=== PATIENT | male | born 1935 | race Caucasian/White ===

== ENCOUNTER 2019-05-23 22:48 | Emergency (ER) | payer OTHER ==
[~2019-05-23] VITALS: Ht 167.6 cm; Wt 67.6 kg
[2019-05-23 22:50] VITALS: BP_SYST 156
--- NOTE | 2019-05-23 22:50 | NUR ---
Pt placed to ER bed 04, to chaitanya, report given to AMOS Levine.
--- NOTE | 2019-05-23 22:51 | NUR ---
Pt AAOx2 referred to ED from urgent care c/o 11/25 non-radiating mid chest pain with vomiting x 2 hours. Was given GI cocktail in UC with mild relief. Pt speaking in full sentences, skin pink dry and warm. No other injuries/complaints per pt/noted. Will continue to monitor.
[2019-05-23] MEDS ORDERED: ASPIRIN 81 MG TAB.CHEW PO ONE (23:00)
--- NOTE | 2019-05-23 23:00 | NUR ---
Dr. hZou at bedside.
--- NOTE | 2019-05-23 23:03 | NUR ---
ER Dr. Zhou at bedside examining patient.
--- NOTE | 2019-05-23 23:06 | NUR ---
Radiology at bedside for CXR
[2019-05-23] MEDS ORDERED: ACETAMINOPHEN 500 MG TABLET PO ONE (23:30)
[2019-05-23 23:31] LABS: HEMATOCRIT 42.8 % (36-54); HEMOGLOBIN 14.3 g/dL (14.0-18.0); MEAN CORPUSCULAR HEMOGLOBIN 31 pg (27-31); MEAN CORPUSCULAR HGB CONC 33 % (32-36); MEAN CORPUSCULAR VOLUME 91 fL (79.0-98.0); PLATELET COUNT (AUTO) 180 K/uL (130-430); RED CELL DISTRIBUTION WIDTH 13.6 % (9.0-15.0); WHITE BLOOD COUNT (AUTO) 24.6 K/uL (4.8-10.8)
[2019-05-23 23:50] LABS: ANION GAP 8 (5-15); CALCIUM 10.3 mg/dL (8.4-11.0); CHLORIDE 96 mmol/L (98-107); CREATININE 1.08 mg/dL (0.55-1.30); GLUCOSE 275 mg/dL (70-99); POTASSIUM 3.9 mmol/L (3.5-5.1); SODIUM SERUM 135 mmol/L (136-145); UREA NITROGEN, BLOOD 22 mg/dL (8-21)
[2019-05-23 23:58] LABS: ALANINE AMINOTRANSFERASE 27 U/L (12-78); ALBUMIN 4.1 g/dL (3.4-4.8); ASPARTATE AMINOTRANSFERASE 19 U/L (10-37); LIPASE 140 U/L (73-393); TOTAL BILIRUBIN 0.4 mg/dL (0.0-1.0)
[2019-05-23 23:59] LABS: BAND % (MANUAL) 4 % (0-6); LYMPHOCYTES % (MANUAL) 45 % (20-46)
[2019-05-24] LABS: ATYPICAL LYMPHOCYTES % 1 % (0-0); EOSINOPHILS % (MANUAL) 1 % (0-7); MONOCYTES % (MANUAL) 1 % (0-11)
--- NOTE | 2019-05-24 | NUR ---
rectal temperature taken Pr Request. Temp 98.5, made aware
[2019-05-24 00:13] LABS: BASOPHILS % (MANUAL) 0 % (0-2)
--- NOTE | 2019-05-24 00:30 | NUR ---
Pt resting in ED bed, no acute distress noted. Pt denies chest pain at this time.
[2019-05-24 00:36] LABS: FREE T4 (FREE THYROXINE) 1.1 ng/dl (0.8-1.5); THYROID STIMULATING HORMONE 1.44 uIu/mL (0.36-3.74)
[2019-05-24] MEDS ORDERED: NACL 0.9% 1,000 ML IV ONE ×2 (01:15→04:30)
[2019-05-24] MEDS ORDERED: PIPERACILLIN/TAZO 3.375 GM in NS 50 ML IV ONE (01:15)
[2019-05-24] MEDS ORDERED: VANCOMYCIN HCL 1,000 MG in NS 250 ML IV ONE (01:15)
--- NOTE | 2019-05-24 01:34 | NUR ---
Unable to save Med Rec into [facility]. Pt states that he takes the following medications: Metformin 1000 mg PO BID. Lisinopril/Hctz 10-12.5 mg PO Daily. Insulin SQ (Formulation, dosage, frequency unknown).
[2019-05-24 02:18] LABS: BILIRUBIN,URINE NEGATIVE (NEGATIVE); BLOOD, URINE NEGATIVE (NEGATIVE); CLARITY/URINE CLEAR (CLEAR); COLOR,URINE YELLOW (YELLOW); GLUCOSE,URINE 3+ (NEGATIVE); KETONES,URINE 1+ (NEGATIVE); LEUKOCYTE ESTERASE ,URINE NEGATIVE (NEGATIVE); NITRITE, URINE NEGATIVE (NEGATIVE); PH,URINE 6.5 (5.0-8.0); PROTEIN URINE 1+ (NEGATIVE); UROBILINOGEN,URINE 0.2 (0.2-1.0)
--- NOTE | 2019-05-24 02:19 | NUR ---
Pt tolerating IV fluids and IV antibiotics well. No s/s of adverse reactions. Pt resting comfortably in ED bed
[2019-05-24 02:36] LABS: BACTERIA,URINE RARE /HPF (None Seen); RBC,URINE 0-3 /HPF (0-3); WBC,URINE 0-3 /HPF (0-3)
--- NOTE | 2019-05-24 03:58 | NUR ---
Pt resting in ED bed with family member bedside. Pt tolerating antibiotics and fluids well. No s/s of acute distress at this time. VSS
--- NOTE | 2019-05-24 05:00 | NUR ---
Pt ambulated to restroom with assistance. pt states he feels improved compared to presentation time.
[2019-05-24] MEDS ORDERED: METOPROLOL TARTRATE 5 MG/5 ML VIAL IVP ONE (05:15)
--- NOTE | 2019-05-24 05:22 | NUR ---
Pt resting in ED bed comfortably. No S/S of acute distress noted. VSS
--- NOTE | 2019-05-24 06:26 | NUR ---
Patient will be admitted to care of . Admitted to Tele unit. Room assignment pending. Pt states he will be sending belonging home. Complete and up to date summary report printed. SBAR report to be given at bedside with opportunity for questions.
--- NOTE | 2019-05-24 07:29 | NUR ---
Report Given to AMOS Tuttle. All care endorsed.
--- NOTE | 2019-05-24 07:45 | NUR ---
Received pt alert and oriented and stable.
[2019-05-24] MEDS ORDERED: ASPIRIN 325 MG TABLET PO SCH (09:00)
--- NOTE | 2019-05-24 09:01 | NUR ---
Pt continues to be stable and VS are WNL> pt is sitting up talking calmly with RN. RN is getting pt some breakfast. pt continues to hold in the ER. pt will be admitted to the telemetry floor.
[2019-05-24 10:36] LABS: BASOPHILS # (AUTO) 0.1 K/uL (0.0-0.2); BASOPHILS % (AUTO) 0.3 % (0.0-2.0); EOSINOPHILS % (AUTO) 0.1 % (0.0-4.0); HEMATOCRIT 39.7 % (36-54); HEMOGLOBIN 13.3 g/dL (14.0-18.0); LYMPHOCYTES # (AUTO) 14.1 K/uL (1.0-5.5); LYMPHOCYTES % (AUTO) 59.5 % (20.5-51.5); MEAN CORPUSCULAR HEMOGLOBIN 31 pg (27-31); MEAN CORPUSCULAR HGB CONC 34 % (32-36); MEAN CORPUSCULAR VOLUME 91 fL (79.0-98.0); MONOCYTES # (AUTO) 1.1 K/uL (0.0-1.0); MONOCYTES % (AUTO) 4.8 % (1.7-9.3); NEUTROPHILS # (AUTO) 8.4 K/uL (1.8-7.7); NEUTROPHILS % (AUTO) 35.3 % (40.0-70.0); PLATELET COUNT (AUTO) 181 K/uL (130-430); RED BLOOD CELL COUNT(AUTO) 4.34 MIL/uL (4.2-6.2); RED CELL DISTRIBUTION WIDTH 13.5 % (9.0-15.0); WHITE BLOOD COUNT (AUTO) 23.7 K/uL (4.8-10.8)
[2019-05-24 10:54] LABS: ANION GAP 8 (5-15); CALCIUM 9.1 mg/dL (8.4-11.0); CHLORIDE 98 mmol/L (98-107); CREATININE 1.03 mg/dL (0.55-1.30); GLUCOSE 251 mg/dL (70-99); POTASSIUM 4.8 mmol/L (3.5-5.1); SODIUM SERUM 133 mmol/L (136-145); UREA NITROGEN, BLOOD 22 mg/dL (8-21)
[2019-05-24 11:16] LABS: ALANINE AMINOTRANSFERASE 25 U/L (12-78); ALBUMIN 3.6 g/dL (3.4-4.8); ASPARTATE AMINOTRANSFERASE 15 U/L (10-37)
[2019-05-24 12:00] LABS: TOTAL BILIRUBIN 0.7 mg/dL (0.0-1.0)
--- NOTE | 2019-05-24 12:02 | NUR ---
Medication reconciliation completed with information provided by patient and family. Any prior medication reconciliation on file was reviewed and corrected. Unable to enter Medication reconcilation in [employer] due to technical issues. Medications as follows: Atorvastatin 20mg Daily at bedtime Lisinopril 20mg Daily in AM HCTZ 12.5 Daily in AM Metformin 1000mg BID
--- NOTE | 2019-05-24 13:30 | NUR ---
After many hours of counseling with his family, patient and family have decided to sign out AMA. pt did not want to wait for Dr. Jaimes, and only spoke to RN. pt is stable and was to be admitted to the telemetry floor. Pt was held in the ER for 5 hours, and still to be holding until a bed or room is available. pt is ambulatory, stable on VS and in good spirits. pt signed AMA and is responsible for himself and lives by himself. His 2 daughters are at bedside, and will take pt home. Family stated they will take him to his PMD [facility] or to the ER if any problems. pt stated he wants to go home and that he feels fine. RN called MD Jaimes, and awaiting cb.
[2019-05-24 13:35] VITALS: BP_SYST 145
[2019-05-24] MEDS ORDERED: METOPROLOL TARTRATE 25 MG TABLET PO SCH (21:00)
== END 2019-05-24 13:00 | disposition left against medical advice (07) ==
LOC: SED 22:48 → UNDOADMIN 05-24 05:27 → STU 05-24 05:27 → SED 05-24 13:00 → STU 05-24 13:00 → UNDODISIN 05-24 13:30
DX: R07.89 Other chest pain (principal); I10 Essential (primary) hypertension; E11.9 Type 2 diabetes mellitus without complications; E78.00 Pure hypercholesterolemia, unspecified
CPT/HCPCS: 36415; 71045; 80053 ×2; 81000; 82550; 83605; 83690; 83880; 84439; 84443; 84484 ×2; 85007; 85025; 85027; 85379; 87040; 93005; 96365; 96366; 96368; 96375; 99284; J7030; G0378